=== PATIENT | female | born 1995 | race Caucasian/White ===

== ENCOUNTER 2019-03-15 18:40 | Emergency (ER) | payer BC ==
[~2019-03-15] VITALS: Ht 157.5 cm; Wt 68.0 kg
[2019-03-15 19:43] LABS: URINE BILIRUBIN NEGATIVE (Negative); URINE BLOOD 1+ (Negative); URINE CLARITY CLEAR; URINE COLOR YELLOW; URINE GLUCOSE-RANDOM NEGATIVE (Negative); URINE KETONES NEGATIVE (Negative); URINE LEUKOCYTES-REFLEX NEGATIVE (Negative); URINE NITRITE-REFLEX NEGATIVE (Negative); URINE PROTEIN NEGATIVE (Negative); URINE UROBILINOGEN 0.2 E.U./dl (0.2-1.0)
[2019-03-15 19:46] LABS: ABSOLUTE EOSINOPHILS 0.1 thou/uL (0.0-0.7); ABSOLUTE LYMPHOCYTES 1.7 thou/uL (0.8-5.3); ABSOLUTE MONOCYTES 0.8 thou/uL (0.0-1.2); ABSOLUTE NEUTROPHILS 7.8 thou/uL (1.6-8.1); BASOPHILS 0.3 %; EOSINOPHILS 1.3 %; HEMATOCRIT 42.7 % (37.0-47.0); HEMOGLOBIN 14.6 gm/dL (12.0-15.0); LYMPHOCYTES 16.4 %; MCH 30.9 pg (26.0-34.0); MCHC 34.2 g/dL (28.0-37.0); MCV 90.5 fL (80.0-100.0); MONOCYTES 7.9 %; MPV 9.5 fl. (7.2-11.1); NUCLEATED RBCS 0 /100WBC; PLATELET COUNT* 252 thou/uL (150-400); POLYS 74.1 %; RBC 4.72 mil/uL (4.20-5.00); RDW-CV 12.5 % (10.5-14.5); WBC 10.5 thou/uL (4.0-11.0)
[2019-03-15 19:53] LABS: CREATININE 0.7 mg/dL (0.6-1.3); POTASSIUM 3.7 mmol/L (3.5-5.1)
[2019-03-15 19:57] LABS: SQUAMOUS 0-3 Few /LPF (0-3)
[2019-03-15 19:58] LABS: BACTERIA-REFLEX 1-9 Few /HPF (None Seen); CASTS None Seen /LPF (None Seen); CRYSTALS None Seen /LPF (None Seen); MUCUS 0-3 Light strn/LPF (None Seen); URINE RBC 0-2 Rare /HPF (0-2); URINE WBC-REFLEX 0-5 Rare /HPF (0-5)
[2019-03-15 19:58] LABS: TOTAL BILIRUBIN 0.2 mg/dL (<0.1-1.0); TOTAL PROTEIN 7.4 g/dL (6.4-8.2)
[2019-03-15] MEDS ORDERED: MACRODANTIN100 MG PO (20:44)
[2019-03-15 21:08] VITALS: BP 133/85
== END 2019-03-15 21:09 | disposition home or self-care (01) ==
LOC: M.ERS 18:40
PROVIDERS: Nurse Practitioner Family
DX: N39.0 Urinary tract infection, site not specified (principal); Z98.890 Other specified postprocedural states; Z90.49 Acquired absence of other specified parts of digestive tract

== ENCOUNTER 2019-04-30 23:22 | Emergency (ER) | payer OTHER ==
[~2019-04-30] VITALS: Ht 157.5 cm; Wt 70.3 kg
[~2019-04-30 23:22] MED LIST: MACRODANTIN100 MG PO
[2019-05-01] MEDS ORDERED: PREDNISONE50 MG PO (00:22)
[2019-05-01] MEDS ORDERED: AZITHROMYCIN 2250 MG PO (00:22)
[2019-05-01 00:36] VITALS: BP 117/67
== END 2019-05-01 00:38 | disposition home or self-care (01) ==
LOC: M.ERS 23:22
DX: J40 Bronchitis, not specified as acute or chronic (principal); F17.210 Nicotine dependence, cigarettes, uncomplicated; Z90.49 Acquired absence of other specified parts of digestive tract; Z98.890 Other specified postprocedural states